=== PATIENT | male | born 2005 | race Caucasian/White ===

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

== ENCOUNTER 2023-08-23 14:29 | Emergency (ER) | payer MEDICAID, SELFPAY ==
[2023-08-23 15:09] VITALS: BP 134/86; PULSE 104; RESP 16; TEMP 36.8; O2SAT 98; BMI 18.3
--- NOTE | 2023-08-23 16:37 | W.ED.HA ---
HPI - Headache General: Chief Complaint: Headache Stated Complaint: headache, n/v Time Seen by Provider: 08/23/23 16:32 History of Present Illness: 17-year-old male patient comes in today with headache for 3 days. Patient reports nausea and vomiting with a headache. Patient reports headache is worse when he bends forward. Patient appears nontoxic. Patient reports no fever. Patient reports is the worst headaches he has had breath had. Review of Systems General: Reports: 10 or more systems reviewed and unremarkable except in HPI and below Neuro: Reports: headache(s) PFSH ED PFSH: Social History Smoking and tobacco/nicotine status: never used tobacco/nicotine Physical Exam Const: COMMON NORMALS: alert HENMT: COMMON NORMALS: atraumatic HEAD & SCALP: atraumatic FACE & SINUS: no Facial tenderness on exam of face and sinuses MOUTH: Normal oral and palatal mucosa present Neck/C-Spine: COMMON NORMALS: full ROM and no meningeal signs Resp: COMMON NORMALS: normal respiratory effort and clear to auscultation bilaterally AUSCULTATION: clear to auscultation bilaterally Cardio: COMMON NORMALS: regular rate and regular rhythm RATE: regular rate RHYTHM: regular rhythm GI: COMMON NORMALS: Soft to palpation and non-tender PALPATION: Yes Soft to palpation : COMMON NORMALS: Yes no CVA tenderness BLADDER/KIDNEY EXAM: Yes no CVA tenderness Back/Pelvis: COMMON NORMALS: no CVA tenderness and thoracic and lumbar spine normal to inspection Extremity: COMMON NORMALS: no pedal edema Neuro: SENSORIUM/ORIENTATION: Yes alert MENINGEAL SIGNS: Yes no meningeal signs Skin: COMMON NORMALS: turgor normal GENERAL SKIN EXAM: turgor normal Course Vital Signs: Vital signs: Vital Signs Temperature 98.3 F 08/23/23 15:09 Pulse Rate 104 H 08/23/23 15:09 Respiratory Rate 16 08/23/23 15:09 Blood Pressure 134/86 08/23/23 15:09 Pulse Oximetry 98 08/23/23 15:09 Oxygen Delivery Me thod Room Air 08/23/23 15:09 MDM - Headache Medical Decision Making 17-year-old male patient comes in today for complaints of headache for 3 days. On exam patient appears nontoxic. Patient appears in mild pain. Patient reports increased pain with bending forward. No facial sinus tenderness is noted on palpation. Posterior pharynx shows some mild cobblestoning. Patient does have some discharge and bilateral naris. Vital signs are normal. Differential diagnosis includes but limited to headache syndrome, rhinosinusitis, intracranial mass/bleeding, migraine headache. CT of the head noted pansinusitis otherwise unremarkable. Reviewed exam with patient recommended treatment with doxycycline and prednisone. Patient reported understanding agreed to plan. Lab Data Radiology Impressions Head CT 08/23/23 16:40 IMPRESSION: 1. No large territorial infarct or intracranial bleed. 2. Acute paranasal sinusitis. All radiology interpretation(s) finalized by discharge Discharge Plan Discharge Patient Disposition: Home Clinical Impression: Sinusitis Qualifiers: Sinusitis location: pansinusitis Chronicity: unspecified Qualified Code(s): J32.4 - Chronic pansinusitis Condition: Stable Prescriptions: New doxycycline hyclate 100 mg tablet 100 mg PO BID 7 Days Qty: 14 0RF prednisone 20 mg tablet 20 mg PO DAILY 7 Days Qty: 7 0RF No Action omeprazole 40 mg capsule,delayed release(DR/EC) 40 mg PO DAILY 14 Days Qty: 14 0RF ondansetron 4 mg tablet,disintegrating 4 mg PO Q8H PRN (Reason: nausea and vomiting) 7 Days Qty: 14 0RF Discharge Orders: Discharge ED (Routine); Ordered 08/23/23 Ordered By: Josue Colvin Referrals: Bridget Mirza MD [Primary Care Provider] - Discharge Diet: Usual diet Discharge Activity: Increase activity as tolerated Patient Instructions: Sinusitis (ED) Activity Restrictions/Additional Instructions: Take medication as directed. Drink plenty of water and fluids. Follow-up with primary care for further instructions. Return to ED for new concerns. Coding Level of Care Code ED Projection Printer for Radha Berg
--- NOTE | 2023-08-23 16:40 | CTR_ITS ---
PROCEDURE INFORMATION: Exam: CT Head Without Contrast Exam date and time: 08/23/2023 5:25 PM Age: 17 years old Clinical indication: Pain; Headache; Additional info: Severe headache, no prior imaging TECHNIQUE: Imaging protocol: Computed tomography of the head without contrast. Radiation optimization: All CT scans at this facility use at least one of these dose optimization techniques: automated exposure control; mA and/or kV adjustment per patient size (includes targeted exams where dose is matched to clinical indication); or iterative reconstruction. COMPARISON: CT head wo con* [id number] 02/06/2020 8:53 PM RADIATION DOSE METRICS: Total DLP (mGy-cm): 1047.21 FINDINGS: Brain: Normal. No hemorrhage. Unremarkable white matter. No mass effect. Cerebral ventricles: No ventriculomegaly. Paranasal sinuses: There are frothy secretions in bilateral maxillary sinuses, sphenoid sinuses, ethmoid air cells and right frontal sinus with air-fluid levels. Mastoid air cells: Visualized mastoid air cells are well aerated. Bones/joints: Unremarkable. No acute fracture. Soft tissues: Unremarkable. CT/CT head wo con* [id number] IMPRESSION: 1. No large territorial infarct or intracranial bleed. 2. Acute paranasal sinusitis.
[2023-08-23] MEDS: dexamethasone 10 mg/mL INJ IM (18:18)
[2023-08-23] MEDS: doxycycline 100 mg Tablet PO (18:18)
[2023-08-23 18:23] VITALS: BP 130/87; PULSE 95; O2SAT 95
== END 2023-08-23 18:24 | disposition home or self-care (01) ==
PROVIDERS: Emergency Provider Nurse Practitioner Family; PCP Pediatrics Adolescent Medicine
DX: J32.4 Chronic pansinusitis (principal)
CPT/HCPCS: 70450; 96372; 99284; J1100